=== PATIENT | male | born 1950 | race Caucasian/White ===

== ENCOUNTER 2017-02-02 13:05 | Emergency (ER) | payer MEDICARE ==
[~2017-02-02] VITALS: Ht 170.2 cm; Wt 72.7 kg
[~2017-02-02 13:05] MED LIST: AMLO10TA3 PO; ASPI-628 PO; NADO20TA PO; TAMS0.4C98 PO
[2017-02-02 13:07] VITALS: BP 164/91; PULSE 51; RESP 20; O2SAT 98
[2017-02-02 13:41] LABS: BASOPHILS % (AUTO) 0.2 % (0-3); EOSINOPHILS % (AUTO) 0.7 % (0-5); MONOCYTES % (AUTO) 5.6 % (4-12); Mean Corpuscular Hemoglobin 30.1 pg (27.0-35.0); Mean Corpuscular Volume 83.7 fL (81-100); NEUTROPHILS % (AUTO) 70.4 % (40-74); Platelet Count 189 bil/L (150-400)
[2017-02-02 14:01] LABS: Magnesium 1.9 mg/dL (1.6-2.6)
--- NOTE | 2017-02-02 16:35 | ED.REPORT ---
HPI-Abd Pain M 40 and Over Date of Service Feb 02, 2017 ED Provider: Krissy Stokes MD Patient is a 66 year old male with a history of liver cirrhosis, bladder cancer , hypertension and hepatitis C who presents to the ED complaining of abdominal pain onset yesterday. Associated symptoms include decreased appetite. He also reports 20lbs of weight loss over the past few years. Patient denies diarrhea, vomiting, fever, nausea, shortness of breath, urinary frequency, increased thirst or chills. Patient reports he has had this pain before and it just went away after 3 days. Nursing Notes Stated Complaint: ABD PAIN/BLOATING Chief Complaint: Male Abdominal Pain Nursing Notes Reviewed: Yes Allergies: Coded Allergies: acetaminophen (Verified Adverse Reaction, Severe, HX OF LIVER DISEASE, 12/11) codeine (Verified Adverse Reaction, Severe, GI UPSET, 07/14/14) Scheduled Amlodipine (Amlodipine) 10 Mg Tablet 10 MG PO DAILY Aspirin (Aspir 81) 81 Mg Tablet.dr 81 MG PO DAILY Nadolol (Nadolol) 20 Mg Tablet 20 MG PO BID Tamsulosin (Flomax) 0.4 Mg Capsule 0.4 MG PO DAILY General Time Seen by MD: 16:34 Chief Complaint Abdominal pain Hx Obtained From: Patient, Daughter Arrived By: Walk-in Sudden in Onset?: Yes Onset Occurred: Yesterday Symptom Duration: Since onset Location: : Diffuse Quality: Painful Radiation: : Does not radiate Severity: Current: Moderate Recent Healthcare: No recent hospitalization Past Medical History Past Medical History liver cirrhosis Hep C bladder cancer Reports: Hypertension Smoking History Former Smoker Social History Drug Use: THC Other Social History: Good social support, Lives alone Ambulatory Status Independent Review of Systems Review of Systems Note: +decreased appetite Constitutional: Denies: Chills, Fever Respiratory: Denies: Non-productive cough, Shortness of breath GI: Reports: Abdominal pain, Denies: Diarrhea, Nausea, Vomiting Male: Denies Urinary frequency Complete sys rev & neg: except as marked. Endocrine: Reports: Weight loss Skin: Denies Itching, Denies Rash Physical Exam Initial Vital Signs Vital Signs (First) Date Time Temp Pulse Resp B/P Pulse Ox O2 Delivery O2 Flow Rate FiO2 02/02/17 13:07 36.9 51 20 164/91 98 Room Air Initial VS: Reviewed General/Constitutional: Awake, Alert Respiratory / Chest: Atraumatic, No respiratory distress Wheezing / Retractions: Positive: Wheezing mild (scattered bilaterally) Cardiovascular: Heart rate NL, Regular rhythm, Heart sounds NL Abdomen: Atraumatic, Soft Tenderness/Guarding/Rebound: Positive: Tender diffuse (mildly) decreased bowel sounds huge firm liver edge Back: Atraumatic, Non-tender Head / Eyes: Atraumatic, Normocephalic, PERRL, EOMI Skin: Atraumatic, Color NL, No rash, Warm, Dry Neurologic: Oriented X3, Speech NL, No motor deficits, No sensory deficits Upper Extremity / MS: Atraumatic, Full range of motion Interpretation & Diagnostics Interpretation & Diagnostics: Urine dip with ketones and glucose Lab Results Interpretation Result Diagram: 02/02/17 1325 02/02/17 1325 Test 02/02/17 13:25 02/02/17 16:10 White Blood Count 10.3th/mm3 (3.8-10.1) Red Blood Count 5.35mil/mm3 (4.40-5.80) Hemoglobin 16.1g/dL (13.8-17.2) Hematocrit 44.8% (41.0-50.0) Mean Corpuscular Volume 83.7fL (81-100) Mean Corpuscular Hemoglobin 30.1pg (27.0-35.0) Mean Corpuscular Hemoglobin Concent 35.9% (32.0-37.0) Red Cell Distribution Width 12.2% (12.3-15.4) Platelet Count 189bil/L (150-400) Neutrophils (%) (Auto) 70.4% (40-74) Lymphocytes (%) (Auto) 22.8% (14-46) Monocytes (%) (Auto) 5.6% (4-12) Eosinophils (%) (Auto) 0.7% (0-5) Basophils (%) (Auto) 0.2% (0-3) Sodium Level 134mEq/L (134-144) Potassium Level 4.7mEq/L (3.5-5.2) Chloride Level 95mEq/L (97-108) Carbon Dioxide Level 24mmol/L (18-29) Blood Urea Nitrogen 13mg/dL (8-27) Creatinine 0.61mg/dL (0.76-1.27) Estimat Glomerular Filtration Rate 140mL/min (>59) Glucose Level 237mg/dL (60-99) Calcium Level 10.0mg/dL (8.5-10.1) Magnesium Level 1.9mg/dL (1.6-2.6) Total Bilirubin 0.6mg/dL (0.0-1.2) Aspartate Amino Transf (AST/SGOT) 23U/L (0-50) Alanine Aminotransferase (ALT/SGPT) 29U/L (0-44) Alkaline Phosphatase 67U/L (25-160) Total Protein 7.9g/dL (6.4-8.4) Albumin 4.7g/dL (3.4-5.0) Lipase 40U/L (13-60) Hold Urine Received (Received) CT Abd / Pelvis Interpretation IMPRESSION: 1. No imaging explanation for diffuse abdominal pain. The appendix appears normal. 2. Cirrhotic liver as before, without splenomegaly or ascites. 3. Solitary 1.6 cm calcified gallstone as before. 4. Asymmetric left renal peripelvic cysts are unchanged. 5. Small retrocardiac hiatal hernia. 6. Small fat-containing left inguinal hernia as before. Dictated by: Marcus Westfall M.D. on 02/02/2017 at 17:52 Approved by: Marcus Westfall M.D. on 02/02/2017 at 18:02 Interpretation / Wet Read by: Interpret - Radiologist Re-Eval/Medical Decision Counseled Regarding: Diagnosis, Lab results Discharge & Departure Primary Impression: Generalized abdominal pain Additional Impression: Diabetes Disposition: Home Vital Signs - All Vital Signs Date Time Temp Pulse Resp B/P Pulse Ox O2 Delivery O2 Flow Rate FiO2 02/02/17 13:07 36.9 51 20 164/91 98 Room Air )( All Prior VS Reviewed: Yes Condition: Stable Additional Instructions: At this time, I have no explanation for your abdominal pain. There is no evidence of significant infection based on your lab work. The CT scan of the abdomen does not show any significant findings, specifically no issues with your prior bladder cancer and no changes to the known cirrhosis. There is no appendicitis, no cholecystitis, no diverticulitis, no abscess, and no unexplained masses. At this time, I have no concerns for life-threatening diagnoses. In these situations, time is often the best advice. If you feel you are getting worse, develop a fever, have or changing symptoms, please feel free to return to the emergency room for additional evaluation. Your fasting blood sugar today was 256, definition, diabetes. Please follow-up with Dr. Walker regarding this Referrals: Jenniffer Walker MD (PCP) Nicky Attestation Portions of this note were transcribed by Mulu Arita. I, Dr. Stokes personally performed the history, physical exam and medical decision-making; I reviewed and confirmed the accuracy of the information in the transcribed note. Signed by: Nicky Morgan, 02/02/17 and 1650 copies to: Jenniffer Walker MD, Shawna L MD Feb 02, 2017 16:34 Yessica Arita Feb 02, 2017 16:45
[2017-02-02] MEDS ORDERED: HYDROmorphone 1 mg/mL Inj IVPUSH PRN (16:45)
[2017-02-02] MEDS ORDERED: Ondansetron 2 mg/mL 2 mL Inj ONE ×2 (16:57→18:18)
--- NOTE | 2017-02-02 18:04 | DRSVH ---
PROCEDURE: CT ABDOMEN AND PELVIS WITH CONTRAST ([id number]) INDICATIONS: 66-year-old male with diffuse abdominal pain since yesterday. TECHNIQUE: After the administration of intravenous contrast, 5 mm thick sections acquired from the diaphragm to the symphysis. 5 mm coronal and sagittal reformats were acquired. For radiation dose reduction, the following was used: automated exposure control, adjustment of mA and/or kV according to patient siz e. COMPARISON: [facility], CT, ABD/PELVIS W&WO CON (PNL), 06/30/2014, 14:47. [facility], CT, ABD/PELVIS W&WO CON (PNL), 12/13/2008, 13:11. FINDINGS: Image quality: Excellent. ABDOMEN: Lung bases: Lung bases are clear. Heart size is normal. There is small hiatal hernia. Solid organs: Liver and spleen are normal in size. Capsular scalloping of the liver capsule is agai n noted, indicating cirrhosis. No suspicious enhancing liver mass lesions. Gallbladder contains a 1.6 cm calcified gallstone as before. Biliary system is non dilated. Pancreas enhances normally. No a drenal nodules. Kidneys demonstrate normal size and enhancement, without hydronephrosis. Multiple as ymmetric left renal peripelvic cysts are again noted. Peritoneum and bowel: Bowel loops demonstrate normal wall thickness and caliber. The appendix is no rmal in caliber. No free fluid or air. Nodes and vessels: No retroperitoneal or mesenteric adenopathy by size criteria. Several prominent peripancreatic and periportal lymph nodes are not significantly changed 2013. Aorta and inferior vena cava are normal in size, with moderate aortoiliac atherosclerosis. Miscellaneous: No ventral hernias. PELVIS: Genitourinary: Bladder wall thickness is normal. Prostate gland is normal in size. Miscellaneous: Small fat-containing left inguinal hernia is again noted. Patient is status post bilat eral vasectomies. No inguinal adenopathy by CT size criteria. Bones: No suspicious bony lesions. No vertebral body compression fractures. There is mild lumbar sp ine disc degeneration. IMPRESSION: 1. No imaging explanation for diffuse abdominal pain. The appendix appears normal. 2. Cirrhotic liver as before, without splenomegaly or ascites. 3. Solitary 1.6 cm calcified gallstone as before. 4. Asymmetric left renal peripelvic cysts are unchanged. 5. Small retrocardiac hiatal hernia. 6. Small fat-containing left inguinal hernia as before. Dictated by: Marcus Westfall M.D. on 02/02/2017 at 17:52 Approved by: Marcus Westfall M.D. on 02/02/2017 at 18:02
== END 2017-02-02 18:55 | disposition home or self-care (01) ==
LOC: SED 13:05
DX: R10.84 Generalized abdominal pain (principal); E11.9 Type 2 diabetes mellitus without complications; B19.20 Unspecified viral hepatitis C without hepatic coma; I10 Essential (primary) hypertension; Z87.891 Personal history of nicotine dependence; Z79.82 Long term (current) use of aspirin; Z88.5 Allergy status to narcotic agent; Z88.8 Allergy status to other drugs, medicaments and biological substances
CPT/HCPCS: 36415; 74177; 80053; 83690; 83735; 85025; 96374; 96375; 99285; J1170; J2405; Q9967